=== PATIENT | male | born 1985 | race Hispanic/Latino ===

== ENCOUNTER 2021-05-10 23:36 | Emergency (ER) | payer OTHER, SELFPAY ==
[2021-05-10 23:39] VITALS: BP 165/93; PULSE 68; RESP 20; TEMP 36.7; O2SAT 98; BMI 35.2
--- NOTE | 2021-05-10 23:39 | DI.RAD.S_ITS ---
PROCEDURE: XR CHEST 1V INDICATIONS: Chest Pain / Chest Pressure TECHNIQUE: One view of the chest was acquired. COMPARISON: None. FINDINGS: Surgical changes and devices: None. Lungs and pleura: Lungs are clear. No pleural effusions or pneumothorax. Mediastinum: Mediastinal contours appear normal. Heart size is normal. Bones and chest wall: No suspicious bony lesions. Overlying soft tissues appear unremarkable. IMPRESSION: No acute process. Dictated by: Jose Duran M.D. on 05/10/2021 at 23:57 Approved by: Jose Duran M.D. on 05/10/2021 at 23:58
--- NOTE | 2021-05-10 23:39 | ED.CHESTPAIN ---
HPI - Chest Pain General Chief Complaint: Shortness of Breath/Dyspnea Stated Complaint: high blood pressure/chest pressure x7 days Time Seen by Provider: 05/10/21 23:38 History of Present Illness HPI narrative: 35-year-old male nonsmoker without any significant chronic medical problems presents with his in the chief complaint of chest pain for about the past week that he has scribe's is left-sided pressure and squeezing. He denies any obvious provocation, palliation or radiation. Additionally states that he has had short of breath over that same time frame. He denies any recent travel or injury. He denies any cough, fever or chills. He denies any change in medications, diet or activity. He does state that he feels like he has become increasingly fatigued over this time frame as well. He denies any cardiac history. He is not having any symptoms on his arrival. Related Data Allergies Allergy/AdvReac Type Severity Reaction Status Date / Time No Known Drug Allergies Allergy Verified 05/11/21 00:35 Review of Systems Review of Systems Narrative: GENERAL: Denies chills, fatigue, malaise, fever, sweats. HEENT: Denies sinus pain, ear pain, sore throat, difficulty swallowing, dizziness. RESPIRATORY: See HPI CARDIOVASCULAR: See HPI GASTROINTESTINAL: Denies nausea, vomiting, abdominal pain, diarrhea, constipation, melena. : Denies dysuria, frequency, incontinence, hematuria, urinary retention. MUSCULOSKELETAL: denies weakness, joint pain, or bony pain SKIN: Denies rash, skin lesions, or other NEUROLOGIC: Denies weakness, headache, numbness, change in speech, confusion, seizures, incoordination. PSYCHIATRIC: No concerning psychosocial issues. 12 point review of systems is negative except for those stated above Patient History Social History Smoking Status: Never smoker Exam Narrative Exam Narrative: GENERAL: [35] year old patient appears stated age. Well-developed patient, in mild distress. HEAD: Atraumatic. Normocephalic. EYES: Pupils equal round and reactive. Extraocular motions intact. No scleral icterus. No injection or drainage. ENT: Nose without bleeding, purulent drainage. Throat without erythema, tonsillar hypertrophy or exudate. Airway patent. NECK: Trachea midline. Non tender CARDIOVASCULAR: Regular rate and rhythm without murmurs, gallops, or rubs. RESPIRATORY: Clear to auscultation. Breath sounds equal bilaterally. No wheezes, rales, or rhonchi. GASTROINTESTINAL: Abdomen soft, non-tender, nondistended. EXTREMITIES: No edema or joint tenderness. BACK: Nontender without deformity or crepitance. No flank tenderness. NEURO: AOx3. SKIN: No rash or erythema of visible areas Initial Vital Signs Initial Vital Signs: Vital Signs Temperature 98.1 F 05/10/21 23:39 Pulse Rate 68 05/10/21 23:39 Respiratory Rate 20 05/10/21 23:39 Blood Pressure 165/93 H 05/10/21 23:39 Pulse Oximetry 98 05/10/21 23:39 Course Orders Ordered: ED Orders 05/10/21 23:39 XR chest 1V Stat EKG-12 Lead Stat 05/10/21 23:45 COVID19 -Nasal swab/Pre-Proc Stat 05/10/21 23:58 CRP [C-Reactive Protein Quant] Stat Complete Blood Count AUTO DIFF Stat Comprehensive Metabolic Panel Stat ESR [Erythrocyte Sedimentation Rate] Stat Lipase Stat Troponin & CK Cardiac Panel Stat 05/11/21 00:35 BNP [NT-proBNP (BNP-Adult 18+)] Stat 05/11/21 01:35 D Dimer Stat Discontinued Medications Sodium Chloride (Normal Saline 0.9%) 1,000 mls @ 150 mls/hr IV CONT DAVID Last Infusion: 05/11/21 02:47 Dose: 0 mls/hr Documented by: Admin: 05/11/21 00:01 Dose: 150 mls/hr Documented by: KASSY Reevaluation(s) Reevaluation #1: patient resting comfortably and in no obvious distress. No pain or SOB Vital Signs Vital signs: Vital Signs - 8 hr 05/10/21 23:39 05/11/21 00:41 05/11/21 00:42 Temperature 98.1 F Pulse Rate 68 61 62 Respiratory Rate 20 25 H 16 Blood Pressure 165/93 H 146/84 H 146/84 H Pulse Oximetry 98 96 98 05/11/21 01:00 05/11/21 01:30 Temperature Pulse Rate 70 63 Respiratory Rate 21 26 H Blood Pressure Pulse Oximetry 96 95 MDM - Chest Pain Lab Data Result diagrams: 05/10/21 23:58 05/11/21 00:35 Labs: Lab Results 05/10/21 05/10/21 05/10/21 Range/Units 23:45 23:52 23:58 WBC 9.4 (4.5-11.0) X10^3/uL RBC 4.96 (4.5-5.9) X10^6/uL Hgb 15.8 (13.5-17.5) g/dL Hct 45.6 (41-53) % MCV 92.0 (80-100) fL MCH 31.9 (26-34) PG MCHC 34.7 (30-36) % RDW 12.9 (11.6-14.8) % Plt Count 199 (150-400) X10^3/uL Neut % (Auto) 49.5 L (50-75) % Lymph % (Auto) 40.6 H (25-40) % Dixie % (Auto) 6.5 (3-14) % Eos % (Auto) 2.5 (2-4) % Baso % (Auto) 0.9 (0-2) % Neut # (Auto) 4700 (0298-8927) /uL Lymph # (Auto) 3800 (5796-7440) /uL Dixie # (Auto) 600 (0-900) /uL Eos # (Auto) 200 (0-450) /uL Baso # (Auto) 100 (0-100) /uL ESR (0-15) MM/HR D-Dimer < 200 (<230) ng/mL Sodium (137-145) mmol/L Potassium (3.4-5.1) mmol/L Chloride (98-107) mmol/L Carbon Dioxide (22-32) mmol/L BUN (9-20) mg/dL Creatinine (0.66-1.25) mg/dL Estimated GFR (>60) mL/min BUN/Creatinine Ratio (6-22) Glucose (70-100) mg/dL Calcium (8.4-10.2) mg/dL Total Bilirubin (0.2-1.3) mg/dL AST (17-59) IU/L ALT (<50) IU/L Alkaline Phosphatase (38-126) U/L Total Creatine Kinase (55-170) U/L CK-MB (CK-2) CK-MB (CK-2) Rel Index Troponin I (0.01-0.034) ng/mL C-Reactive Protein (<1.0) mg/dL NT-Pro-B Natriuret Pep (<125) pg/mL Total Protein (6.3-8.2) g/dL Albumin (3.5-5.0) g/dL Globulin (1.7-4.1) g/dL Albumin/Globulin Ratio (1.0-2.8) Lipase (23-300) U/L SARS-CoV-2 (PCR) Negative (Negative) 05/10/21 05/10/21 05/11/21 Range/Units 23:58 23:58 00:35 WBC (4.5-11.0) X10^3/uL RBC (4.5-5.9) X10^6/uL Hgb (13.5-17.5) g/dL Hct (41-53) % MCV (80-100) fL MCH (26-34) PG MCHC (30-36) % RDW (11.6-14.8) % Plt Count (150-400) X10^3/uL Neut % (Auto) (50-75) % Lymph % (Auto) (25-40) % Dixie % (Auto) (3-14) % Eos % (Auto) (2-4) % Baso % (Auto) (0-2) % Neut # (Auto) (0399-1490) /uL Lymph # (Auto) (4650-7259) /uL Dixie # (Auto) (0-900) /uL Eos # (Auto) (0-450) /uL Baso # (Auto) (0-100) /uL ESR 4 (0-15) MM/HR D-Dimer (<230) ng/mL Sodium 141 (137-145) mmol/L Potassium 3.6 (3.4-5.1) mmol/L Chloride 111 H (98-107) mmol/L Carbon Dioxide 25 (22-32) mmol/L BUN 11 (9-20) mg/dL Creatinine 0.58 L (0.66-1.25) mg/dL Estimated GFR > 60.0 (>60) mL/min BUN/Creatinine Ratio 19.0 (6-22) Glucose 123 H (70-100) mg/dL Calcium 8.4 (8.4-10.2) mg/dL Total Bilirubin 0.9 (0.2-1.3) mg/dL AST 32 (17-59) IU/L ALT 64 H (<50) IU/L Alkaline Phosphatase 74 (38-126) U/L Total Creatine Kinase 63 (55-170) U/L CK-MB (CK-2) TNP CK-MB (CK-2) Rel Index TNP Troponin I < 0.012 (0.01-0.034) ng/mL C-Reactive Protein < 0.5 (<1.0) mg/dL NT-Pro-B Natriuret Pep (<125) pg/mL Total Protein 7.6 (6.3-8.2) g/dL Albumin 4.1 (3.5-5.0) g/dL Globulin 3.5 (1.7-4.1) g/dL Albumin/Globulin Ratio 1.2 (1.0-2.8) Lipase 70 (23-300) U/L SARS-CoV-2 (PCR) (Negative) 05/11/21 Range/Units 00:35 WBC (4.5-11.0) X10^3/uL RBC (4.5-5.9) X10^6/uL Hgb (13.5-17.5) g/dL Hct (41-53) % MCV (80-100) fL MCH (26-34) PG MCHC (30-36) % RDW (11.6-14.8) % Plt Count (150-400) X10^3/uL Neut % (Auto) (50-75) % Lymph % (Auto) (25-40) % Dixie % (Auto) (3-14) % Eos % (Auto) (2-4) % Baso % (Auto) (0-2) % Neut # (Auto) (6545-2676) /uL Lymph # (Auto) (9176-2554) /uL Dixie # (Auto) (0-900) /uL Eos # (Auto) (0-450) /uL Baso # (Auto) (0-100) /uL ESR (0-15) MM/HR D-Dimer (<230) ng/mL Sodium (137-145) mmol/L Potassium (3.4-5.1) mmol/L Chloride (98-107) mmol/L Carbon Dioxide (22-32) mmol/L BUN (9-20) mg/dL Creatinine (0.66-1.25) mg/dL Estimated GFR (>60) mL/min BUN/Creatinine Ratio (6-22) Glucose (70-100) mg/dL Calcium (8.4-10.2) mg/dL Total Bilirubin (0.2-1.3) mg/dL AST (17-59) IU/L ALT (<50) IU/L Alkaline Phosphatase (38-126) U/L Total Creatine Kinase (55-170) U/L CK-MB (CK-2) CK-MB (CK-2) Rel Index Troponin I (0.01-0.034) ng/mL C-Reactive Protein (<1.0) mg/dL NT-Pro-B Natriuret Pep < 11 (<125) pg/mL Total Protein (6.3-8.2) g/dL Albumin (3.5-5.0) g/dL Globulin (1.7-4.1) g/dL Albumin/Globulin Ratio (1.0-2.8) Lipase (23-300) U/L SARS-CoV-2 (PCR) (Negative) Imaging Data Chest x-ray: Radiologist's Impression: Gray Ledbetter??35??M??1985 ? Allergy/Adv: No Known Drug Allergies (More??) Close Chest X-Ray (Signed) Jose Duran - 05/10/21 Launch?[address] [address] XRay Report Signed Patient: Gray Ledbetter MR#: [id number] : 1985 Acct:[id number] Age/Sex: 35 / M Date of Service: 05/10/21 Loc: ED Accession Number: [id number] ?? Procedure: XR chest 1V Ordering Provider: Harish Estrada D.O. PROCEDURE:? XR CHEST 1V ? INDICATIONS:? Chest Pain / Chest Pressure ? TECHNIQUE:? One view of the chest was acquired.? ? COMPARISON:? None. ? FINDINGS:? ? Surgical changes and devices:? None.? ? Lungs and pleura:? Lungs are clear.? No pleural effusions or pneumothorax.? ? Mediastinum:? Mediastinal contours appear normal.? Heart size is normal.? ? Bones and chest wall:? No suspicious bony lesions.? Overlying soft tissues appear unremarkable.? ? IMPRESSION:? No acute process. ? ? Dictated by: Jose Duran M.D. on 05/10/2021 at 23:57 ? ? Approved by: Jose Duran M.D. on 05/10/2021 at 23:58 ? MDM Narrative Medical decision making narrative: Multiple causes of chest pain considered including NM, PE, pneumothorax, pneumonia, aortic dissection, and pleurisy. Patient reports no radiation, no diaphoresis, no provocation with exertion, and no vomiting Findings and discharge diagnosis discussed with patient/family followed by verbalization of understanding Return precautions discussed with patient/family whom verbalize understanding. Discharge Plan Departure Patient Disposition: Home Clinical Impression: Atypical chest pain Instructions: DI for Atypical Chest Pain Activity Restrictions/Additional Instructions: *You have been diagnosed with [atypical chest pain. Your history and physical exam are very reassuring. Lab work, EKG and chest x-ray would suggest there is no pneumonia, heart failure, heart attack or blood clot. *What to do: *Please continue to take your regular medications as directed. [ ] New medication prescriptions sent to your pharmacy: [ ] [ ] New medication written as a paper prescription [x ] No new medications given *If you do not have a primary care provider please contact the [facility] line at [phone]. They will ask some questions about your medical history and help get you set up with a doctor in the community. *Return to Emergency Department if you should have any new, worsening or concerning symptoms, such as [fever greater than 101 F, shaking chills, worsening pain, persistent vomiting or other bothersome symptoms]
[2021-05-11] MEDS: SODIUM CHLORIDE 0.9% 1,000 ML 150 ML IV (00:01)
[2021-05-11 00:09] LABS: COVID19 -Nasal RAPID Negative (Negative)
[2021-05-11 00:13] LABS: Add Manual Diff / Slide Review NO; Basophils Absolute Auto 100 /uL (0-100); Basophils Percent Auto 0.9 % (0-2); Eosinophils Absolute Auto 200 /uL (0-450); Eosinophils Percent Auto 2.5 % (2-4); Hematocrit 45.6 % (41-53); Hemoglobin 15.8 g/dL (13.5-17.5); Lymphocytes Absolute Auto 3800 /uL (1100-4500); Lymphocytes Percent Auto 40.6 % (25-40); Mean Corpuscular HGB Conc 34.7 % (30-36); Mean Corpuscular Hemoglobin 31.9 PG (26-34); Monocytes Absolute Auto 600 /uL (0-900); Monocytes Percent Auto 6.5 % (3-14); Neutrophils Absolute Auto 4700 /uL (1500-7000); Neutrophils Percent Auto 49.5 % (50-75); Platelet Count 199 X10^3/uL (150-400); Red Blood Cell Count 4.96 X10^6/uL (4.5-5.9); Red Cell Distribution Width 12.9 % (11.6-14.8); White Blood Cell Count 9.4 X10^3/uL (4.5-11.0)
[2021-05-11 00:23] LABS: C-Reactive Protein Quant < 0.5 mg/dL (<1.0)
[2021-05-11 00:41] VITALS: BP 146/84; PULSE 61; RESP 25; O2SAT 96
[2021-05-11 00:42] VITALS: BP 146/84; PULSE 62; RESP 16; O2SAT 98
[2021-05-11 01:00] VITALS: PULSE 70; RESP 21; O2SAT 96
[2021-05-11 01:06] LABS: Erythrocyte Sedimentation Rate 4 MM/HR (0-15)
[2021-05-11 01:15] LABS: Alanine Aminotransferase 64 IU/L (<50); Albumin 4.1 g/dL (3.5-5.0); Albumin Globulin Ratio 1.2 (1.0-2.8); Alkaline Phosphatase 74 U/L (38-126); Aspartate Aminotransferase 32 IU/L (17-59); Bilirubin Total 0.9 mg/dL (0.2-1.3); Blood Urea Nitrogen 11 mg/dL (9-20); Calcium 8.4 mg/dL (8.4-10.2); Carbon Dioxide 25 mmol/L (22-32); Chloride 111 mmol/L (98-107); Creatine Kinase 63 U/L (55-170); Estimated Glomerular Filt Rate > 60.0 mL/min (>60); Globulin 3.5 g/dL (1.7-4.1); Glucose 123 mg/dL (70-100); HEMOLYSIS 17 (0-50); Lipase 70 U/L (23-300); Potassium 3.6 mmol/L (3.4-5.1); Sodium 141 mmol/L (137-145); Total Protein 7.6 g/dL (6.3-8.2)
[2021-05-11 01:26] LABS: Troponin I < 0.012 ng/mL (0.01-0.034)
[2021-05-11 01:30] VITALS: PULSE 63; RESP 26; O2SAT 95
[2021-05-11 01:48] LABS: D Dimer < 200 ng/mL (<230)
[2021-05-11 02:03] LABS: NT-proBNP (BNP-Adult 18+) < 11 pg/mL (<125)
== END 2021-05-11 02:47 | disposition home or self-care (01) ==
PROVIDERS: Emergency Provider Emergency Medicine
DX: R07.89 Other chest pain (principal); Z20.822 Contact with and (suspected) exposure to COVID-19
CPT/HCPCS: 36415; 71045; 80053; 82550; 83690; 83880; 84484; 85025; 85379; 85651; 86140; 87635; 93005; 96360; 96361; 99284; C9803

== ENCOUNTER 2023-12-01 07:37 | Emergency (ER) | payer SELFPAY ==
[2023-12-01 07:43] VITALS: BP 133/87; PULSE 59; O2SAT 98
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
[2023-12-01 07:49] VITALS: BP 133/87; PULSE 59; RESP 16; TEMP 36.8; O2SAT 99; BMI 30.9
[2023-12-01 08:00] VITALS: BP 131/62; PULSE 63; O2SAT 98
[2023-12-01 08:18] VITALS: BP 133/87; PULSE 59; RESP 16; TEMP 36.8; O2SAT 99
[2023-12-01 08:30] VITALS: PULSE 62; O2SAT 98
[2023-12-01 08:31] VITALS: BP 166/82; PULSE 62; O2SAT 98
[2023-12-01] MEDS: HYDROCODONE/ACET 5/325 TABLET 1 TAB PO (08:48)
[2023-12-01] MEDS: TET,DIPH,PERTUSS(ACELL),VAC/PF 0.5 ML SYRINGE IM (08:49)
[2023-12-01] MEDS: BACITRACIN OINT 0.9 GM PCKT 1 APPLIC TOP (08:49)
== END 2023-12-01 09:10 | disposition home or self-care (01) ==
PROVIDERS: Emergency Provider Emergency Medicine
DX: S01.01XA Laceration without foreign body of scalp, initial encounter (principal); V87.7XXA Person injured in collision between other specified motor vehicles (traffic), initial encounter; R40.2412 Glasgow coma scale score 13-15, at arrival to emergency department; Z23 Encounter for immunization
CPT/HCPCS: 12001; 90471; 99283; 99284; 90715

== ENCOUNTER 2024-02-07 15:28 | Emergency (ER) | payer SELFPAY ==
[2024-02-07 15:33] VITALS: BP 172/98; PULSE 60; RESP 16; O2SAT 99; BMI 31.8
--- NOTE | 2024-02-07 16:06 | ED.WOUNDLAC ---
HPI - Wound/Laceration <Mabel Koo PA-C - Last Filed: 02/07/24 19:23> General Chief Complaint: Wound/Laceration Stated Complaint: finger laceration, actively bleeding Time Seen by Provider: 02/07/24 16:06 History of Present Illness HPI narrative: Mr. Mima Esposito is a pleasant 38-year-old male with no reported past medical history who presents to the emergency department for a left middle finger laceration that occurred just prior to arrival. Patient reports that he was cutting branches at his house when he lacerated the tip of his left middle finger with pruning jeannette. His tetanus was updated in November of this year. He denies any other injuries. Patient has a near avulsion of the distal tip push middle finger, actively bleeding however bleeding is controlled with direct pressure. Denies blood thinner use. No other injuries. Related Data Previous Rx's Medication Instructions Recorded cephalexin 500 mg capsule 500 mg PO TID 5 days #15 caps 02/07/24 Allergies Allergy/AdvReac Type Severity Reaction Status Date / Time No Known Drug Allergies Allergy Verified 12/01/23 07:57 Review of Systems <Mabel Koo PA-C - Last Filed: 02/07/24 19:23> Review of Systems ROS Unobtainable: All systems reviewed & are unremarkable except as noted in HPI and below Patient History <Mabel Koo PA-C - Last Filed: 02/07/24 19:23> Social History Smoking Status: Never smoker Smoking Status: Never smoker alcohol intake frequency: a few times a month Substance Use Type: does not use Exam <Mabel Koo PA-C - Last Filed: 02/07/24 19:23> Narrative Exam Narrative: GENERAL: 38 year old patient appears stated age. Well-developed patient, in no acute distress. HEAD: Atraumatic. Normocephalic. EYES: Extraocular motions intact. No scleral icterus. No injection or drainage. ENT: Nose without bleeding, purulent drainage. NECK: Trachea midline. Cervical ROM intact. CARDIOVASCULAR: Regular rate RESPIRATORY: ?Nonlabored respirations. ?Speaking in clear, full sentences. EXTREMITIES: Left middle finger flap laceration on distal pad/tip, near avulsion. Bleeding controlled with direct pressure. Distal cap refill intact. SITLT. Distal nail laceratied. No pain with ROM. Strong radial pulse. BACK: Nontender without deformity or crepitance. No flank tenderness. NEURO: AOx3. ?Clear speech. ?Moves all 4 extremities appropriately. SKIN: flap lac left middle finger distal tip Initial Vital Signs Initial Vital Signs: Vital Signs Pulse Rate 60 02/07/24 15:33 Respiratory Rate 16 02/07/24 15:33 Blood Pressure 172/98 H 02/07/24 15:33 Pulse Oximetry 99 02/07/24 15:33 Oxygen Delivery Method Room Air 02/07/24 15:33 <Panchito Brasher MD - Last Filed: 02/07/24 19:35> Initial Vital Signs Initial Vital Signs: Vital Signs Pulse Rate 60 02/07/24 15:33 Respiratory Rate 16 02/07/24 15:33 Blood Pressure 172/98 H 02/07/24 15:33 Pulse Oximetry 99 02/07/24 15:33 Oxygen Delivery Method Room Air 02/07/24 15:33 Procedures <MARY Friedman Last Filed: 02/07/24 19:23> Laceration Repair Laceration 1: Time of procedure: 17:30 Site: hand (middle finger) Side (If applicable): left Size (cm): 3 Depth: simple, single layer (flap) Local Anesthetic: lidocaine 1% (digital block) Amount of anesthesia used (mL): 4 Pre-repair: wound explored and irrigated extensively (cleansed with betadine) Skin layer closed with: nylon Skin layer suture size: 5-0 Number of sutures: 6 Technique: simple, interrupted Course <Mabel Koo PA-C - Last Filed: 02/07/24 19:23> Orders Ordered: Discontinued Medications Bacitracin (Bacitracin Oint 0.9 Gm Pckt) 1 applic TOP NOW ONE Stop: 02/07/24 16:33 Last Admin: 02/07/24 17:09 Dose: 1 applic Documented By: ZULEYKA Cephalexin HCl (Cephalexin 250 Mg Capsule) 500 mg PO NOW ONE Stop: 02/07/24 18:10 Last Admin: 02/07/24 18:17 Dose: 500 mg Documented By: ZULEYKA Lidocaine HCl (Lidocaine 1% 20 Ml) 5 ml SUBCUT NOW ONE Stop: 02/07/24 16:33 Last Admin: 02/07/24 17:08 Dose: 5 ml Documented By: RB Vital Signs Vital signs: Vital Signs - 8 hr 02/07/24 15:33 02/07/24 18:24 Temperature 98 F Pulse Rate 60 68 Respiratory Rate 16 17 Blood Pressure 172/98 H 146/76 H Pulse Oximetry 99 99 Oxygen Delivery Method Room Air Room Air <Panchito Brasher MD - Last Filed: 02/07/24 19:35> Orders Ordered: Discontinued Medications Bacitracin (Bacitracin Oint 0.9 Gm Pckt) 1 applic TOP NOW ONE Stop: 02/07/24 16:33 Last Admin: 02/07/24 17:09 Dose: 1 applic Documented By: RB Cephalexin HCl (Cephalexin 250 Mg Capsule) 500 mg PO NOW ONE Stop: 02/07/24 18:10 Last Admin: 02/07/24 18:17 Dose: 500 mg Documented By: RB Lidocaine HCl (Lidocaine 1% 20 Ml) 5 ml SUBCUT NOW ONE Stop: 02/07/24 16:33 Last Admin: 02/07/24 17:08 Dose: 5 ml Documented By: RB Vital Signs Vital signs: Vital Signs - 8 hr 02/07/24 15:33 02/07/24 18:24 Temperature 98 F Pulse Rate 60 68 Respiratory Rate 16 17 Blood Pressure 172/98 H 146/76 H Pulse Oximetry 99 99 Oxygen Delivery Method Room Air Room Air MDM - Wound/Laceration <Mabel Koo PA-C - Last Filed: 02/07/24 19:23> Medical Records Attestation: I reviewed the patient's medical records. [facility] Narrative Medical decision making narrative: 38-year-old male presents to the emergency department for a laceration to the tip of his left middle finger. Differential diagnosis includes but is not limited to laceration, avulsion, fracture, infection, etc. On exam patient is in no acute distress, nontoxic-appearing. He has a flap laceration of the distal most tip of his left middle finger, flap is still intact with decreased capillary refill to flap. Distal nail is lacerated. Tdap is up-to-date. We will proceed with extensive cleaning of wound and repair. Distal most nail will need to be trimmed to allow for laceration repair. Digital block of left middle finger successful. Wound was extensively irrigated and cleansed. Nail was trimmed to allow for full laceration repair. Six simple interrupted sutures were used. Patient's wound was covered with bacitracin and sterile dressing applied. Discussed proper wound care with the patient and informed on signs and symptoms of infection to return to ER for. We will cover empirically with Keflex given dirty wound. Advised suture removal in 10 days. Five days of antibiotics sent to pharmacy. Patient verbalized understanding of all information and is stable for discharge. Discharge Plan Departure Patient Disposition: Home Clinical Impression: Laceration of left middle finger Qualifiers: Encounter type: initial encounter Damage to nail status: with damage Foreign body presence: without foreign body Qualified Code(s): S61.313A - Laceration without foreign body of left middle finger with damage to nail, initial encounter Instructions: DI for Laceration Repair Activity Restrictions/Additional Instructions: Today you had a laceration to your left middle finger. We have placed 6 sutures. They need to be removed in 10 days. You may do this in your doctor's office, the [id number], or here if necessary. Please keep the dressing on your wound clean, dry, and intact for the next 24 hours. After this time, you may remove the dressing and gently clean the wound with soap and water, then pat dry. Keep the wound clean and covered. Avoid soaking the wound in any water such as a bath, pool, or the ocean. If you develop any signs of wound infection such as increased redness, pus drainage, streaking redness, or fevers, please return to the ER immediately for evaluation. Once sutures are removed and the wound has healed, apply sunscreen daily to reduce the appearance of scars. Please follow up with your primary care doctor within the next 10 days for ER follow-up. (If you do not have a PCP you can call [phone]. ?to schedule an appointment with an [facility] Primary Care Provider) IF YOU DEVELOP ANY NEW OR WORSENING SYMPTOMS, RETURN TO THE ER! Please read the attached instructions, they highlight more specific treatments and interventions for you at home. Thank you for letting me participate in your care, Mabel Koo PA-C Prescriptions: New cephalexin 500 mg capsule 500 mg PO TID 5 Days Qty: 15 0RF Referrals: Miscellaneous,[facility] [Primary Care Provider] - Stand Alone Forms: Patient Portal/API/Survey ED Sign-out <Panchito Brasher MD - Last Filed: 02/07/24 19:35> Cosign ED Attending Cosignature Attestation: I was immediately available in the department for consultation. This documentation has been reviewed and I agree with assessment and plan. Supervised by Panchito Brasher MD
[2024-02-07] MEDS: LIDOCAINE 1% 20 ML 5 ML SUBCUT (17:08)
[2024-02-07] MEDS: BACITRACIN OINT 0.9 GM PCKT 1 APPLIC TOP (17:09)
[2024-02-07] MEDS: cephALEXin 250 MG CAPSULE 500 MG PO (18:17)
[2024-02-07 18:24] VITALS: BP 146/76; PULSE 68; RESP 17; TEMP 36.6; O2SAT 99
== END 2024-02-07 18:25 | disposition home or self-care (01) ==
PROVIDERS: Emergency Provider Physician Assistant
DX: S61.313A Laceration without foreign body of left middle finger with damage to nail, initial encounter (principal); W27.8XXA Contact with other nonpowered hand tool, initial encounter
CPT/HCPCS: 12002; 99283